=== PATIENT | female | born 1970 | race Caucasian/White ===

== ENCOUNTER 2016-05-12 17:46 | Emergency (ER) | payer MEDICAID ==
[2016-05-12] MEDS ORDERED: SODIUM CHLORIDE 0.9% 1,000 ML ONE (18:44)
[2016-05-12] MEDS ORDERED: METOCLOPRAMIDE 10 MG/2 ML VIAL ONE (18:44)
[2016-05-12] MEDS ORDERED: DIPHENHYDRAMINE 50 MG/ML VIAL ONE (18:44)
[2016-05-12] MEDS ORDERED: KETOROLAC 30 MG/ML VIAL ONE (18:44)
== END 2016-05-12 20:44 | disposition home or self-care (01) ==
LOC: ER 17:46
DX: G43.909 Migraine, unspecified, not intractable, without status migrainosus (principal); Z76.0 Encounter for issue of repeat prescription; G40.909 Epilepsy, unspecified, not intractable, without status epilepticus; Z91.14 Patient's other noncompliance with medication regimen; F17.210 Nicotine dependence, cigarettes, uncomplicated
CPT/HCPCS: 36415; 80053; 81003; 83690; 85025; 96361; 96374; 96375

== ENCOUNTER 2016-05-17 03:13 | Emergency (ER) | payer MEDICAID ==
[2016-05-17] MEDS ORDERED: KETOROLAC 30 MG/ML VIAL ONE (04:31)
[2016-05-17] MEDS ORDERED: ONDANSETRON 4 MG VIAL ONE (04:31)
[2016-05-17] MEDS ORDERED: SODIUM CHLORIDE 0.9% 1,000 ML ONE ×2 (04:31→06:27)
[2016-05-17] MEDS ORDERED: METOCLOPRAMIDE 10 MG/2 ML VIAL ONE (06:26)
[2016-05-17] MEDS ORDERED: ACETAMINOPHEN 325 MG TAB ONE (06:27)
[2016-05-17] MEDS ORDERED: DIPHENHYDRAMINE 50 MG/ML VIAL ONE (06:27)
== END 2016-05-17 08:31 | disposition home or self-care (01) ==
LOC: ER 03:13
CPT/HCPCS: 36415; 71020; 80053; 80307; 81003; 83605; 85025; 87040; 87804; 96361; 96374; 96375